=== PATIENT | male | born 1995 | race Caucasian/White ===

== ENCOUNTER 2016-09-29 22:14 | Emergency (ER) | payer OTHER ==
--- NOTE | ~2016-09-29 | CR20 ---
[facility] A Service of [facility] RADIOLOGY TEXT RESULTS PATIENT: VLADIMIR SULLIVAN LOCATION: [facility] : [birth year] UNIT #: [id number] AGE: [address]: Silver Wen MD SEX: M ORDER DR: [id number] [facility] [address] [place], [place] [address] [id number] E MR#: [id number] Acc #: [id number] NAME: VLADIMIR SULLIVAN : 1995 SEX: M STUDY DATE/TIME: 09/29/2016 22:05 UNIT: [facility] ROOM: STUDY DESCRIPTION: CR Ankle Min 3 Views Lt Attending Physician: Adam Wen M.D. Ordering Physician: Ed Doctor [id number] [facility] Primary Care Physician: No Primary Care Physician MEDICAL IMAGING REPORT This report is preliminary unless electronic signature is present EXAM Left ankle 3 views HISTORY Ankle pain for 8 days after basketball injury. FINDINGS 3 views left ankle demonstrate oblique fracture through the distal shaft of the fibula centered 10 cm proximal to the tip of the lateral malleolus with 6 mm lateral displacement of the distal fracture fragment and approximately 5 degrees lateral angulation of the fracture apex. There is also approximately the medial subluxation of the tibia on the talus and there is a tiny calcification along the lateral margin of the tip of the medial malleolus which could be and an avulsion fracture or dystrophic calcification. There is a 2.4 cm sharply marginated lucent lesion in the anterior calcaneus, which could be incidental intraosseous lipoma. The appearance is benign. Dictated by... Pieter Fletcher M.D. THIS IS AN ELECTRONICALLY VERIFIED REPORT Pieter Fletcher M.D. at 09/30/2016 11:42 PM MARIAMA/fco TD: 09/30/2016 00:22 JOB #: [id number] MEDICAL IMAGING REPORT Page 1 of 1 COPY
--- NOTE | ~2016-09-29 | CR252 ---
[facility] A Service of [facility] RADIOLOGY TEXT RESULTS PATIENT: VLADIMIR SULLIVAN LOCATION: [facility] : [birth year] UNIT #: [id number] AGE: [address]: Silver Wen MD SEX: M ORDER DR: [id number] [facility] [address] [place], [place] [address] [id number] E MR#: [id number] Acc #: [id number] NAME: VLADIMIR SULLIVAN : 1995 SEX: M STUDY DATE/TIME: 09/29/2016 22:02 UNIT: [facility] ROOM: STUDY DESCRIPTION: CR Tibia and Fibula 2 Views Lt Attending Physician: Adam Wen M.D. Ordering Physician: Ed Polo Peña M.D. Primary Care Physician: No Primary Care Physician MEDICAL IMAGING REPORT This report is preliminary unless electronic signature is present EXAM Left tibia and fibula AP and lateral HISTORY Leg pain after injury playing basketball 8 days ago. FINDINGS AP and lateral views of the tibia and fibula demonstrate oblique fracture of the distal fibular shaft centered 10 cm proximal to the tip of the lateral malleolus. There is 6 mm lateral displacement of the distal fracture fragment and approximately 5 degrees lateral angulation of the fracture apex. There is approximately 2 mm medial subluxation of the tibia on the talus and there is a tiny calcification along the lateral margin of the medial malleolus which could be an avulsion fracture fragment versus old dystrophic calcification. There is also a 2.4 cm well circumscribed lesion in the anterior calcaneus, likely an incidental intraosseous lipoma. Dictated by... Pieter Fletcher M.D. THIS IS AN ELECTRONICALLY VERIFIED REPORT Pieter Fletcher M.D. at 09/30/2016 11:42 PM DFL/rnr TD: 09/30/2016 00:30 JOB #: [id number] MEDICAL IMAGING REPORT Page 1 of 1 COPY
== END 2016-09-29 23:33 | disposition home or self-care (01) ==
LOC: CED 22:14
DX: S82.432A Displaced oblique fracture of shaft of left fibula, initial encounter for closed fracture (principal); S93.422A Sprain of deltoid ligament of left ankle, initial encounter; X50.1XXA Overexertion from prolonged static or awkward postures, initial encounter; Y93.61 Activity, american tackle football; Y92.219 Unspecified school as the place of occurrence of the external cause
CPT/HCPCS: 73590; 73610; 99284